=== PATIENT | female | born 1960 | race African-American/Black ===

== ENCOUNTER 2016-06-18 16:53 | Emergency (ER) | payer MEDICAID ==
[~2016-06-18] VITALS: Ht 172.7 cm; Wt 81.8 kg
[~2016-06-18 16:53] MED LIST: ASPIRIN E.C.325 MG PO; BENADRYL50 MG PO; BUPROPION SR100 MG PO; CALCIUM600 M2 PO; COZAAR100 MG PO; CYTOXAN 50 PO; HCTZ 25MG25 MG PO; HYZAAR 25 MG-101 TAB PO; LITHIUM 30300 MG/CAP PO; PROZAC; PROZAC40 MG PO; TRAZODONE100 MG PO; VICODIN 5/5001 UDTAB PO
[2016-06-18 16:56] VITALS: TEMP 97.5
[2016-06-18] MEDS ORDERED: HYZAAR 25 MG-101 TAB PO (17:21)
[2016-06-18] MEDS ORDERED: PROZAC 20MG20 MG PO (17:22)
[2016-06-18 17:50] LABS: BASO % 0.4 % (0.0-2.0); EOS % 0.4 % (0-4.0); GRAN # 3.4 (1.4-6.5); GRAN % 63.9 % (42.2-75.2); HEMOGLOBIN 12.3 g/dl (12.5-16.0); LYMPH # 1.6 (1.2-3.4); LYMPH % 29.3 % (20.0-51.0); MEAN CELL VOLUME 80 fl (80.0-100.0); MEAN CORPUSCULAR HEMOGLOBIN 27 pg (27.0-31.0); MEAN CORPUSCULAR HGB CONC 34 g/dl (33.0-37.0); MEAN PLATELET VOLUME 8.1 fl (7.4-10.4); MONO # 0.3 (0.1-0.6); MONO % 5.8 % (1.7-9.3); PLATELET COUNT 340 K/mm3 (130-400); REDCELL DISTRIBUTION WIDTH-CV 15.1 % (11.5-14.5); WHITE BLOOD COUNT 5.4 K/mm3 (4.8-10.8)
[2016-06-18 17:59] LABS: ADJUSTED CALCIUM 9.2 mg/dL (8.4-10.2); ALANINE AMINOTRANSFERASE 29 U/L (9-52); ALBUMIN 4.5 gm/dL (3.5-5.0); ALKALINE PHOSPHATASE 106 U/L (50-136); ANION GAP 16 mmol/L (7-16); BILIRUBIN,TOTAL 0.6 mg/dL (0.0-1.0); BLOOD UREA NITROGEN 7 mg/dL (7-17); CALCIUM 9.6 mg/dL (8.4-10.2); CARBON DIOXIDE 24 mmol/L (22-30); CHLORIDE 93 mmol/L (98-107); CREATININE, serum 0.91 mg/dL (0.52-1.25); GLUCOSE 119 mg/dL (74-106); POTASSIUM 3.6 mmol/L (3.4-5.0); SODIUM 132 mmol/L (137-145)
[2016-06-18 18:03] LABS: HEMATOCRIT 36.1 % (37.0-47.0)
[2016-06-18 18:56] LABS: AMPHETAMINE URINE NEGATIVE; BARBITURATES URINE NEGATIVE; BENZODIAZEPINES URINE NEGATIVE; BUPRENORPHINE URINE NEGATIVE; METHADONE URINE NEGATIVE; OPIATES URINE NEGATIVE; OXYCODONE URINE POSITIVE; PHENCYCLIDINE URINE NEGATIVE; PROPOXYPHENE URINE NEGATIVE; THC CANNABINOIDS URINE NEGATIVE
[2016-06-18] MEDS ORDERED: PERCOCET 325 MG1 TA2 PO (20:44)
[2016-06-18] MEDS ORDERED: IBU600 MG PO (20:45)
[2016-06-19 03:35] VITALS: BP 123/86; PULSE 82
== END 2016-06-19 03:35 ==
LOC: COL.ER 16:53
PROVIDERS: Family Medicine
DX: F33.2 Major depressive disorder, recurrent severe without psychotic features (principal); R45.851 Suicidal ideations

== ENCOUNTER 2017-03-08 14:00 | Emergency (ER) | payer MEDICAID ==
[~2017-03-08] VITALS: Ht 172.7 cm; Wt 86.4 kg
[~2017-03-08 14:00] MED LIST changes: +IBU600 MG PO; +PERCOCET 325 MG1 TA2 PO; +PROZAC 20MG20 MG PO
[2017-03-08 14:03] VITALS: BP 168/99; TEMP 98
[2017-03-08 14:50] VITALS: PULSE 77
== END 2017-03-08 14:50 | disposition home or self-care (01) ==
LOC: COL.ER 14:00
DX: S61.212A Laceration without foreign body of right middle finger without damage to nail, initial encounter (principal); I10 Essential (primary) hypertension; F31.9 Bipolar disorder, unspecified; W26.9XXA Contact with unspecified sharp object(s), initial encounter

== ENCOUNTER 2018-06-15 13:35 | Emergency (ER) | payer OTHER ==
[~2018-06-15] VITALS: Ht 172.7 cm; Wt 90.9 kg
[2018-06-15 13:39] VITALS: BP 134/78; TEMP 97.9
[2018-06-15] MEDS ORDERED: CEPHALEXIN500 M1 PO (15:26)
[2018-06-15 15:44] VITALS: PULSE 71
== END 2018-06-15 15:46 | disposition home or self-care (01) ==
LOC: COL.ER 13:35
DX: S61.312A Laceration without foreign body of right middle finger with damage to nail, initial encounter (principal); I10 Essential (primary) hypertension; F32.9 Major depressive disorder, single episode, unspecified; Z90.710 Acquired absence of both cervix and uterus; W23.0XXA Caught, crushed, jammed, or pinched between moving objects, initial encounter

== ENCOUNTER → 2018-07-14 | Outpatient (CLI) | payer OTHER ==
[~2018-07-14] MED LIST changes: +CEPHALEXIN500 M1 PO
== END ==
LOC: MC.RAD 13:03
DX: Z12.31 Encounter for screening mammogram for malignant neoplasm of breast (principal)

== ENCOUNTER 2019-01-18 18:04 | Emergency (ER) | payer OTHER ==
[2019-01-18 18:13] VITALS: TEMP 97.4
[2019-01-18 18:32] LABS: BASO % 0.5 % (0.0-2.0); EOS # 0.1 (0.0-0.7); EOS % 1.4 % (0-4.0); GRAN # 3.5 (1.4-6.5); GRAN % 55.2 % (42.2-75.2); HEMOGLOBIN 12.2 g/dl (12.5-16.0); LYMPH # 2.3 (1.2-3.4); LYMPH % 36.9 % (20.0-51.0); MEAN CELL VOLUME 85 fl (80.0-100.0); MEAN CORPUSCULAR HEMOGLOBIN 28 pg (27.0-31.0); MEAN CORPUSCULAR HGB CONC 33 g/dl (33.0-37.0); MEAN PLATELET VOLUME 8.3 fl (7.4-10.4); MONO # 0.4 (0.1-0.6); MONO % 5.7 % (1.7-9.3); PLATELET COUNT 314 K/mm3 (130-400); REDCELL DISTRIBUTION WIDTH-CV 13.7 % (11.5-14.5)
[2019-01-18 18:36] LABS: HEMATOCRIT 36.7 % (37.0-47.0)
[2019-01-18 18:40] LABS: PROTHROMBIN TIME 11.9 SECONDS (9.7-12.8)
[2019-01-18 18:42] LABS: ALANINE AMINOTRANSFERASE < 6 U/L (9-52); ALBUMIN 4.6 gm/dL (3.5-5.0); ALKALINE PHOSPHATASE 149 U/L (50-136); ANION GAP 11 mmol/L (7-16); AST,SGOT 31 U/L (15-37); BILIRUBIN,TOTAL 0.3 mg/dL (0.0-1.0); BLOOD UREA NITROGEN 16 mg/dL (7-17); CALCIUM 9.5 mg/dL (8.4-10.2); CARBON DIOXIDE 27 mmol/L (22-30); CHLORIDE 98 mmol/L (98-107); GLUCOSE 103 mg/dL (74-106); POTASSIUM 3.7 mmol/L (3.4-5.0); SODIUM 136 mmol/L (137-145); TOTAL PROTEIN 9.1 gm/dL (6.4-8.2)
[2019-01-18 18:57] LABS: TROPONIN-I < 0.012 ng/mL (0.000-0.035)
[2019-01-18 23:20] VITALS: BP 175/114; PULSE 68
== END 2019-01-18 23:21 | disposition home or self-care (01) ==
LOC: COL.ER 18:04
PROVIDERS: Emergency Medicine
DX: I10 Essential (primary) hypertension (principal); G43.909 Migraine, unspecified, not intractable, without status migrainosus; Z90.710 Acquired absence of both cervix and uterus
CPT/HCPCS: J2405; J3010; J7040

== ENCOUNTER 2019-09-30 13:20 | Emergency (ER) | payer OTHER ==
[~2019-09-30] VITALS: Ht 172.7 cm; Wt 90.9 kg
[2019-09-30 13:26] VITALS: TEMP 97.3
[2019-09-30] MEDS ORDERED: PROCARDIA10 MG PO (13:29)
[2019-09-30 14:02] LABS: BASO % 0.4 % (0.0-2.0); EOS # 0.1 (0.0-0.7); EOS % 1.6 % (0-4.0); GRAN # 1.9 (1.4-6.5); GRAN % 43.3 % (42.2-75.2); HEMOGLOBIN 12.1 g/dl (12.5-16.0); LYMPH # 2.1 (1.2-3.4); MEAN CELL VOLUME 87 fl (80.0-100.0); MEAN CORPUSCULAR HEMOGLOBIN 29 pg (27.0-31.0); MEAN CORPUSCULAR HGB CONC 33 g/dl (33.0-37.0); MEAN PLATELET VOLUME 8.3 fl (7.4-10.4); MONO # 0.3 (0.1-0.6); MONO % 6.5 % (1.7-9.3); PLATELET COUNT 285 K/mm3 (130-400); RED BLOOD COUNT 4.23 M/mm3 (4.10-5.30); REDCELL DISTRIBUTION WIDTH-CV 13.7 % (11.5-14.5)
[2019-09-30 14:04] LABS: HEMATOCRIT 36.7 % (37.0-47.0)
[2019-09-30 14:18] LABS: ALANINE AMINOTRANSFERASE 14 U/L (4-34); ALBUMIN 4.4 gm/dL (3.5-5.0); ALKALINE PHOSPHATASE 146 U/L (50-136); ANION GAP 10 mmol/L (7-16); AST,SGOT 31 U/L (15-37); BILIRUBIN,TOTAL 0.4 mg/dL (0.0-1.0); BLOOD UREA NITROGEN 19 mg/dL (7-17); CALCIUM 9.4 mg/dL (8.4-10.2); CARBON DIOXIDE 27 mmol/L (22-30); CHLORIDE 97 mmol/L (98-107); CREATININE, serum 0.98 (0.52-1.25); GLUCOSE 94 mg/dL (74-106); SODIUM 133 mmol/L (137-145); TOTAL PROTEIN 8.5 gm/dL (6.4-8.2)
[2019-09-30 14:31] LABS: TROPONIN-I < 0.012 ng/mL (0.000-0.035)
[2019-09-30 15:36] VITALS: BP 158/91; PULSE 76
== END 2019-09-30 15:36 | disposition home or self-care (01) ==
LOC: COL.ER 13:20
PROVIDERS: Emergency Medicine
DX: I10 Essential (primary) hypertension (principal); Z90.710 Acquired absence of both cervix and uterus

== ENCOUNTER → 2020-06-23 | Outpatient (CLI) | payer OTHER ==
[~2020-06-23] MED LIST changes: +DESYREL 50MG50 MG; +NORVASC2.5 MG PO; +PROCARDIA10 MG PO
== END ==
LOC: MC.RAD 14:28
DX: Z12.31 Encounter for screening mammogram for malignant neoplasm of breast (principal)

== ENCOUNTER 2020-10-03 18:58 | Emergency (ER) | payer OTHER ==
[~2020-10-03] VITALS: Ht 172.7 cm; Wt 90.9 kg
[2020-10-03 19:34] VITALS: TEMP 98.3
[2020-10-03] MEDS ORDERED: HCTZ12.5TAB PO (21:02)
[2020-10-03 21:47] VITALS: BP 161/103; PULSE 80
== END 2020-10-03 21:51 | disposition home or self-care (01) ==
LOC: COL.ER 18:58
DX: M25.561 Pain in right knee (principal); I10 Essential (primary) hypertension; F32.9 Major depressive disorder, single episode, unspecified; Z88.8 Allergy status to other drugs, medicaments and biological substances
CPT/HCPCS: J1885

== ENCOUNTER → 2021-03-22 | Emergency (ER) | payer OTHER ==
[~2021-03-22] MED LIST changes: +HCTZ12.5TAB PO
== END ==
LOC: COL.ER 12:24
DX: Z00.00 Encounter for general adult medical examination without abnormal findings (principal)

== ENCOUNTER 2023-03-09 15:06 | Emergency (ER) | payer OTHER ==
[~2023-03-09] VITALS: Ht 172.7 cm; Wt 90.9 kg
[2023-03-09 15:11] VITALS: TEMP 97.4
[2023-03-09] MEDS ORDERED: NORVASC 10MG10 MG PO ×2 (16:50)
[2023-03-09 17:13] VITALS: BP 150/107; PULSE 88
[2023-03-10] MEDS ORDERED: NORVASC 10MG10 MG PO (11:30)
== END 2023-03-09 17:13 | disposition home or self-care (01) ==
LOC: COL.ER 15:06
DX: I10 Essential (primary) hypertension (principal); Z79.899 Other long term (current) drug therapy; Z28.310 Unvaccinated for COVID-19

== ENCOUNTER 2024-02-24 15:11 | Emergency (ER) | payer OTHER ==
[~2024-02-24] VITALS: Ht 172.7 cm; Wt 90.9 kg
[~2024-02-24 15:11] MED LIST changes: +NORVASC 10MG10 MG PO
[2024-02-24 15:26] VITALS: TEMP 97.7
[2024-02-24 17:34] VITALS: BP 167/106; PULSE 71
[2024-02-24] MEDS ORDERED: AMOXICILLIN 8751 TAB PO (17:46)
== END 2024-02-24 17:57 | disposition home or self-care (01) ==
LOC: COL.ER 15:11
DX: K04.7 Periapical abscess without sinus (principal); K00.7 Teething syndrome